=== PATIENT | male | born 1955 | race Caucasian/White ===

== ENCOUNTER 2023-06-13 18:12 | Emergency (ER) | payer MEDICAID ==
[2023-06-13] MEDS ORDERED: Sodium Chloride 0.9% 10 ML Syringe FLUSH PRN (18:25)
[2023-06-13 19:10] LABS: HEMATOCRIT 49.1 % (38.3-50.1); HEMOGLOBIN 16.5 g/dL (12.9-17.7); MEAN CORPUSCULAR HEMOGLOBIN 32.2 pg (27.0-33.3); MEAN CORPUSCULAR HGB CONC 33.7 g/dL (28.7-35.3); MEAN CORPUSCULAR VOLUME 95.6 fL (80.8-98.7); MEAN PLATELET VOLUME 9.5 fL (6.7-11.0); PLATELET COUNT,PLT 176 x10(3)uL (117-477); RED BLOOD CELL COUNT 5.14 x10(6)uL (3.90-5.90); RED CELL DISTRIBUTION WIDTH 14.7 % (12.4-15.0)
[2023-06-13 19:13] LABS: BLOOD UREA NITROGEN,BUN 45 mg/dL (7-18); BUN/CREATININE RATIO 37.5 (9-20); CALCIUM 9.8 mg/dL (8.6-10.2); CARBON DIOXIDE,CO2 27 mmol/L (21-32); CHLORIDE,CL 99 mmol/L (100-110); CREATININE 1.2 mg/dL (0.70-1.30); ESTIMATED GFR 65 mL/min (>60); GLUCOSE RANDOM 224 mg/dL (80-116); POTASSIUM,K 4.4 mmol/L (3.5-5.3); SODIUM,NA 137 mmol/L (135-145)
[2023-06-13 19:19] LABS: A/G RATIO 0.8; ALANINE AMINOTRANSFERASE,ALT 39 U/L (12-36); ALBUMIN 3.4 g/dL (3.2-4.6); ALKALINE PHOSPHATASE 72 IU/L (56-112); ASPARTATE AMNIOTRANSFERASE,AST 45 IU/L (5-25); BILIRUBIN TOTAL 0.5 mg/dL (0.1-1.3); PROTEIN TOTAL,TP 7.8 g/dL (6.0-8.0)
[2023-06-13 19:21] LABS: INR 1.12 (1.00-1.24); PROTHROMBIN TIME 11.5 sec (9.0-11.1); PTT,PARTIAL THROMBOPLSTIN TIME 29.8 SECONDS (24.4-33.2)
[2023-06-13 19:25] LABS: LACTIC ACID 2.3 mmol/L (0.4-2.0)
[2023-06-13 19:34] LABS: BAND PERCENT MAN 2 % (0-6); LYMPHOCYTES PERCENT MAN 5 % (13-37); MONOCYTES PERCENT MAN 8 % (4-12); SEG NEUTROPHILS PERCENT MAN 85 % (46-82)
[2023-06-13 19:42] LABS: INFLUENZA A NAA POSITIVE (NEGATIVE); INFLUENZA B NAA NEGATIVE (NEGATIVE); RESPIRATORY SYNCYTIAL VIR NAA NEGATIVE (NEGATIVE)
[2023-06-13 19:44] LABS: CORONAVIRUS COVID-19 NAA POSITIVE (NEGATIVE)
[2023-06-13] MEDS: Clopidogrel 75 MG Tab PO ONE (20:14)
[2023-06-13] MEDS: Aspirin 300 MG Supp RECTAL SCH (20:30)
[2023-06-14] MEDS: Heparin Sodium 5,000 Units/ML Vial IVPUSH ONE (03:47)
[2023-06-14] MEDS: Metoprolol Tartrate 5 MG/5 ML SDV IVPUSH ONE (03:48)
== END 2023-06-13 21:35 ==
LOC: FB.ED 18:12
DX: U07.1 COVID-19 (principal); I21.4 Non-ST elevation (NSTEMI) myocardial infarction; J10.1 Influenza due to other identified influenza virus with other respiratory manifestations; R56.9 Unspecified convulsions; I24.9 Acute ischemic heart disease, unspecified; I10 Essential (primary) hypertension; F79 Unspecified intellectual disabilities; E11.9 Type 2 diabetes mellitus without complications; E78.5 Hyperlipidemia, unspecified; K59.09 Other constipation; M85.80 Other specified disorders of bone density and structure, unspecified site; Z88.8 Allergy status to other drugs, medicaments and biological substances
CPT/HCPCS: 0241U; 36410; 36415; 70450; 71045; 80053; 82947; 83605; 84484; 85025; 85610; 85730; 93005; 93010; 99284; 99285; A9270-GY

== ENCOUNTER 2023-08-04 12:59 | Emergency (ER) | payer MEDICARE, MEDICAID ==
[2023-08-04] MEDS ORDERED: Sodium Chloride 0.9% 10 ML Syringe FLUSH PRN (13:37)
[2023-08-04] MEDS: Lidocaine 2% HCl 6 ML Jel ONE (14:14)
[2023-08-04 14:18] LABS: BASOPHILS ABSOLUTE AUTO 0.1 x10-3/uL (0.0-0.3); BASOPHILS PERCENT AUTO 0.4 % (0.3-3.8); EOSINOPHILS PERCENT AUTO 0.3 % (0.1-6.8); HEMATOCRIT 48.6 % (38.3-50.1); LYMPHOCYTES ABSOLUTE AUTO 2.7 x10-3/uL (0.5-4.5); LYMPHOCYTES PERCENT AUTO 21.6 % (15.8-45.3); MEAN CORPUSCULAR HEMOGLOBIN 31.4 pg (27.0-33.3); MEAN CORPUSCULAR HGB CONC 32.8 g/dL (28.7-35.3); MEAN CORPUSCULAR VOLUME 95.7 fL (80.8-98.7); MEAN PLATELET VOLUME 8.4 fL (6.7-11.0); MONOCYTES ABSOLUTE AUTO 1.2 x10-3/uL (0.0-1.2); MONOCYTES PERCENT AUTO 9.3 % (5.5-15.2); NEUTROPHILS ABSOLUTE AUTO 8.7 x10-3/uL (1.7-6.9); NEUTROPHILS PERCENT AUTO 68.4 % (40.3-71.8); PLATELET COUNT,PLT 163 x10(3)uL (117-477); RED BLOOD CELL COUNT 5.08 x10(6)uL (3.90-5.90); RED CELL DISTRIBUTION WIDTH 15.2 % (12.4-15.0); WHITE BLOOD CELL COUNT,WBC 12.7 x10-3/uL (3.2-10.1)
[2023-08-04 14:24] LABS: BASE EXCESS VENOUS,POC 4 mmol/L (-2 - 3+); PCO2 VENOUS,POC 41 mmHg (41-51); PH VENOUS,POC 7.45 pH Units (7.32-7.43)
[2023-08-04 14:25] LABS: BLOOD UREA NITROGEN,BUN 38 mg/dL (7-18); CALCIUM 9.2 mg/dL (8.6-10.2); CARBON DIOXIDE,CO2 30 mmol/L (21-32); CHLORIDE,CL 102 mmol/L (100-110); CREATININE 0.9 mg/dL (0.70-1.30); EST CRCL DRUG DOSING (CG) 75.54 mL/min; ESTIMATED GFR 92 mL/min (>60); GLUCOSE RANDOM 124 mg/dL (80-116); POTASSIUM,K 5.1 mmol/L (3.5-5.3); SODIUM,NA 140 mmol/L (135-145)
[2023-08-04 14:27] LABS: BILIRUBIN,URINE SMALL (NEGATIVE); GLUCOSE,URINE NORMAL (NORMAL); KETONES,URINE NEGATIVE (NEGATIVE); LEUKOCYTE ESTERASE,URINE NEGATIVE (NEGATIVE); NITRITE,URINE NEGATIVE (NEGATIVE); OCCULT BLOOD,URINE MODERATE (NEGATIVE); PROTEIN,URINE 30 mg/dL (NEGATIVE); UROBILINOGEN,URINE 4 mg/dL (NEGATIVE)
[2023-08-04 14:30] LABS: A/G RATIO 0.6; ALANINE AMINOTRANSFERASE,ALT 15 U/L (12-36); ALBUMIN 2.9 g/dL (3.2-4.6); ALKALINE PHOSPHATASE 73 IU/L (56-112); ASPARTATE AMNIOTRANSFERASE,AST 29 IU/L (5-25); BILIRUBIN TOTAL 0.4 mg/dL (0.1-1.3); BUN/CREATININE RATIO 42.2 (9-20); MAGNESIUM 1.6 mg/dL (1.8-2.5); PROTEIN TOTAL,TP 7.5 g/dL (6.0-8.0)
[2023-08-04 14:34] LABS: TROPONIN I 8.5 pg/mL (4.0-60.3)
[2023-08-04 14:37] LABS: C-REACTIVE PROTEIN 2.9 mg/dL (<0.50)
[2023-08-04 14:37] LABS: APPEARANCE,URINE CLEAR (CLEAR); COLOR,URINE ORANGE (YELLOW); WBC,URINE 0-5 (0-5)
[2023-08-04 14:38] LABS: BACTERIA,URINE FEW (NS); SQUAMOUS EPITHELIAL CELLS,UR FEW (NS,R,O)
[2023-08-04 14:49] LABS: INFLUENZA A NAA NEGATIVE (NEGATIVE); INFLUENZA B NAA NEGATIVE (NEGATIVE); RESPIRATORY SYNCYTIAL VIR NAA NEGATIVE (NEGATIVE)
[2023-08-04 14:50] LABS: CORONAVIRUS COVID-19 NAA NEGATIVE (NEGATIVE)
[2023-08-04] MEDS: Sodium Chloride 0.9% 1,000 ML IV ONE (15:01)
[2023-08-04] MEDS: Piperacillin/Tazobactam 3.375 GM in Sodium Chloride 0.9% 50 ML IV ONE (16:16)
[2023-08-04] MEDS: VANCOmycin 1.5 GM/300 ML 1.5 GM in Premix Bag 1 BAG IV SCH (17:34)
== END 2023-08-04 18:25 ==
LOC: FB.ED 12:59
DX: J18.9 Pneumonia, unspecified organism (principal); G93.40 Encephalopathy, unspecified; E86.0 Dehydration; I10 Essential (primary) hypertension; E11.9 Type 2 diabetes mellitus without complications; Z88.8 Allergy status to other drugs, medicaments and biological substances; Z90.49 Acquired absence of other specified parts of digestive tract
CPT/HCPCS: 0241U; 36415; 51702; 70450; 71045; 80053; 81001; 83605; 83735; 84484; 85025; 86140; 87040; 87077; 87186; 93005; 96361; 96365; 96367; 99285-25; A9270-GY; J2543; J3370; J3490; J7030